=== PATIENT | male | born 2000 | race Caucasian/White ===

== ENCOUNTER 2020-07-11 23:09 | Emergency (ER) | payer BC ==
[~2020-07-11] VITALS: Ht 183 cm; Wt 79.1 kg
[2020-07-11 23:15] VITALS: BP 133/86
--- NOTE | 2020-07-11 23:55 | ED Upper Extremity ---
General Chief Complaint: Laceration Stated Complaint: LAC,RT HAND MIDDLE FINGER Nursing Triage Note: right 3rd finger laceration. Nursing Sepsis Screen: No Definite Risk Source: patient Exam Limitations: no limitations History of Present Illness Date Seen by Provider: Jul 11, 2020 Time Seen by Provider: 23:32 Initial Comments Here with laceration to the pad of the right third finger after accidentally cutting it with a knife. Tetanus up-to-date. No other wounds. Bleeding controlled with direct pressure. Onset: just prior to arrival Severity: mild Pain/Injury Location: right 3rd finger Method of Injury: incised Modifying Factors: Improves With Rest Allergies and Home Medications Allergies Coded Allergies: procaine (Unverified Allergy, Unknown, 07/26/15) Patient Home Medication List Home Medication List Reviewed: Yes Review of Systems Constitutional: see HPI; No chills, No fever Respiratory: no symptoms reported Cardiovascular: no symptoms reported Skin: see HPI; No change in color; lesions Psychiatric/Neurological: No Symptoms Reported Past Arscuet-Cmjhiw-Diaqvp Hx Past Med/Social Hx: Reviewed Nursing Past Med/Soc Hx Patient Social History Alcohol Use: Denies Use Recreational Drug Use: No Smoking Status: Never a Smoker 2nd Hand Smoke Exposure: No Recent Foreign Travel: No Contact w/Someone Who Travel: No Recent Infectious Disease Expo: No Recent Hopitalizations: No Physical Abuse: No Sexual Abuse: No Mistreated: No Fear: No Immunizations Up To Date Tetanus Booster (TDap): Less than 5yrs PED Vaccines UTD: Yes Seasonal Allergies Seasonal Allergies: No Past Medical History Surgeries: Yes (dental) Respiratory: No Cardiac: No Neurological: No Genitourinary: No Gastrointestinal: No Musculoskeletal: No Endocrine: No HEENT: No Cancer: No Psychosocial: No Integumentary: No Blood Disorders: No Family Medical History Reviewed Nursing Family Hx Physical Exam Vital Signs Vital Signs - First Documented 07/11/20 23:15 Temp 37.2 Pulse 89 Resp 16 B/P (MAP) 133/86 (102) Pulse Ox 96 O2 Delivery Room Air Capillary Refill : Less Than 3 Seconds Height, Weight, BMI Height: '" Weight: lbs. oz. kg; 23.00 BMI Method: General Appearance: WD/WN, no apparent distress Cardiovascular: regular rate, rhythm, no murmur Respiratory: lungs clear, normal breath sounds Hand: Right, laceration (right third finger pad 1 cm superficial laceration/flap) Neurologic/Psychiatric: no motor/sensory deficits, alert, oriented x 3 Skin: normal color, warm/dry Procedures/Interventions Wound Location: Upper Extremities Other Wound Location Right third finger pad Wound Length (cm): 1 Wound's Depth, Shape: superficial Wound Explored: clean Irrigated w/ Saline (ccs): 50 Other Closure Supply: Wound Adhesive Layer Closure?: 1 Progress Wound cleaned with soap and water. Dried. Bleeding controlled. Wound covered with wound adhesive.. Hemostasis. Covered with dry Band-Aid. Tolerated procedure well with no complications. Progress/Results/Core Measures Results/Orders Vital Signs/I&O 07/11/20 23:15 Temp 37.2 Pulse 89 Resp 16 B/P (MAP) 133/86 (102) Pulse Ox 96 O2 Delivery Room Air Blood Pressure Mean: 102 Progress Progress Note : Progress Note Seen and evaluated. Wound copiously cleaned. Closed with skin glue., With Band- Aid. Discharged home with return precautions. Patient verbalize understanding instructions and agreement with plan. Departure Impression Primary Impression: Laceration of finger, right Qualified Codes: S61.212A - Laceration without foreign body of right middle finger without damage to nail, initial encounter Disposition: HOME, SELF-CARE Condition: Improved Departure-Patient Inst. Decision time for Depature: 23:54 Referrals: NO,LOCAL PHYSICIAN (PCP/Family) Primary Care Physician Patient Instructions: Laceration Repair With Glue (DC) Add. Discharge Instructions: All discharge instructions reviewed with patient and/or family. Voiced understanding. You may cover wound with dry Band-Aid. Do not soak wound or cover with antibiotic ointment or lotion as this will prematurely lift the skin glue. Let the glue fall off on its own over the next week. Return for worse pain, swelling, red streaks up the finger, foul-smelling drainage, fever or other con cerns as needed. JESSICA STEELE MD Jul 11, 2020 23:55
== END 2020-07-11 23:56 | disposition home or self-care (01) ==
LOC: EDUNIT# 23:09 → ER 23:12
DX: S61.212A Laceration without foreign body of right middle finger without damage to nail, initial encounter (principal); Z88.8 Allergy status to other drugs, medicaments and biological substances; W26.0XXA Contact with knife, initial encounter
CPT/HCPCS: 12001

== ENCOUNTER 2022-07-30 18:52 | Emergency (ER) | payer OTHER, BC ==
[~2022-07-30] VITALS: Ht 182.8 cm; Wt 105.6 kg
--- NOTE | 2022-07-30 19:21 | ED General ---
General Chief Complaint: Bite-Animal/Human/Insect Stated Complaint: BITE Nursing Triage Note: PT TO FT1 WITH CC OF DOG BITE. 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 PT STATES PAIN IS 1/10. STATES LAST TDAP 4 YRS AGO (LEIGHANN RHODES APRN) History of Present Illness Date Seen by Provider: Jul 30, 2022 Time Seen by Provider: 19:10 Initial Comments Patient reports that he was grooming a dog at work when he got bit in left index finger. Tetanus was in the past 4 years. Denies any other injuries. Injury happened just prior to arrival. Timing/Duration: 1 Hour Severity: Mild Associated Systoms: No Fever/Chills, No Rash (LEIGHANN RHODES APRN) Allergies and Home Medications Allergies Coded Allergies: procaine (Unverified Allergy, Unknown, 07/26/15) Patient Home Medication List Home Medication List Reviewed: Yes (LEIGHANN RHODES APRN) Amoxicillin/Potassium Clav (Amox Tr-K Clv 875-125 mg Tab) 875 Mg-125 Mg Tablet, 1 EACH PO BID Prescribed by: Leighann Rhodes on 07/30/221922 Review of Systems Review of Systems Constitutional: No fever Musculoskeletal: joint pain (left index finger); No joint swelling Skin: No change in color, No change in hair/nails, No dryness; lesions (punctures x3 to left distal index finger); No pruritus (LEIGHANN RHODES APRN) All Other Systems Reviewed Negative Unless Noted: Yes (LEIGHANN RHODES APRN) Past Hhxysob-Vegrjh-Wfhwwp Hx Immunizations Up To Date Tetanus Booster (TDap): Less than 5yrs PED Vaccines UTD: Yes (LEIGHANN RHODES APRN) Seasonal Allergies Seasonal Allergies: No (LEIGHANN RHODES APRN) Past Medical History Surgeries: Yes (dental) Respiratory: No Cardiac: No Neurological: No Genitourinary: No Gastrointestinal: No Musculoskeletal: No Endocrine: No HEENT: No Cancer: No Psychosocial: No Integumentary: No Blood Disorders: No (LEIGHANN RHODES APRN) Family Medical History Reviewed Nursing Family Hx (LEIGHANN RHODES APRN) Physical Exam Vital Signs Vital Signs - First Documented 07/30/22 18:57 Temp 36.9 Pulse 92 Resp 16 B/P (MAP) 144/84 (104) Pulse Ox 96 O2 Delivery Room Air (NITZA,SAMMY K DO) Vital Signs Capillary Refill : Less Than 3 Seconds (LEIGHANN RHODES APRN) Height, Weight, BMI Height: '" Weight: lbs. oz. kg; 31.00 BMI Method: General Appearance: No Apparent Distress, WD/WN Extremity: Normal Range of Motion, Other (left distal index punctures x3, very superficial and no active bleeding appreciated, normal range of motion of finger) Neurologic/Psychiatric: Alert, Oriented x3 Skin: Normal Color, Warm/Dry, Other (punctures x3 to left distal index finger as described above) (LEIGHANN RHODES APRN) Progress/Results/Core Measures Suspected Sepsis SIRS Temperature: Pulse: 92 Respiratory Rate: 16 Blood Pressure 144 /84 Mean: 104 (LEIGHANN RHODES APRN) Results/Orders Vital Signs/I&O 07/30/22 07/30/22 18:57 19:30 Temp 36.9 Pulse 92 92 Resp 16 16 B/P (MAP) 144/84 (104) 144/84 Pulse Ox 96 96 O2 Delivery Room Air Room Air (NITZA,SAMMY K DO) Vital Signs/I&O Capillary Refill : Less Than 3 Seconds (LEIGHANN RHODES APRN) Blood Pressure Mean: 104 Progress Note : Progress Note Patient with very superficial puncture wounds to left distal index finger. Tetanus was up to date. Will start on Augmentin twice a day for 7 days. Reasons to return to the ER were discussed with patient in addition. (LEIGHANN RHODES APRN) Departure Impression Primary Impression: Dog bite Qualified Codes: W54.0XXA - Bitten by dog, initial encounter Disposition: 01 HOME, SELF-CARE Condition: Stable Departure-Patient Inst. Decision time for Depature: 19:21 (LEIGHANN RHODES APRN) Referrals: NO,LOCAL PHYSICIAN (PCP/Family) Primary Care Physician Patient Instructions: Animal Bites (DC) Add. Discharge Instructions: 1. Home and rest. 2. Keep the wound clean and dry. 3. Alternate Tylenol/Ibuprofen as needed for pain. 4. Follow up with PCP as needed. 5. You may return to work without restrictions and full duty. 6. Augmentin as directed until finished. 7. Return here if worse or concerns. All discharge instructions reviewed with patient and/or family. Voiced understanding. Scripts Amoxicillin/Potassium Clav (Amox Tr-K Clv 875-125 mg Tab) 875 Mg-125 Mg Tablet 1 EACH PO BID, #14 TAB Prov: LEIGHANN RHODES APRN 07/30/22 ATTENDING PHYSICIAN NOTE: I WAS PHYSICALLY PRESENT ER PHYSICIAN, BUT I WAS NOT INVOLVED IN ANY DECISION MAKING OR ANY CARE OF THIS PATIENT, AND I AM NOT COLLABORATING PHYSICIAN. (SAMMY GODDARD DO) LEIGHANN RHODES APRN Jul 30, 2022 19:21 SAMMY GODDARD DO Aug 01, 2022 03:03
[2022-07-30] MEDS ORDERED: AMOX1TAB12 PO (19:23)
[2022-07-30 19:30] VITALS: BP 144/84
== END 2022-07-30 19:30 | disposition home or self-care (01) ==
LOC: EDUNIT# 18:52 → ER 18:54
DX: S61.231A Puncture wound without foreign body of left index finger without damage to nail, initial encounter (principal); W54.0XXA Bitten by dog, initial encounter; Y92.59 Other trade areas as the place of occurrence of the external cause; Y99.0 Civilian activity done for income or pay
CPT/HCPCS: 99281